=== PATIENT | female | born 1960 | race African-American/Black ===

== ENCOUNTER 2018-06-28 13:30 | Inpatient (IN) | payer MEDICAID, OTHER ==
[~2018-06-28] VITALS: Ht 167.6 cm; Wt 49.5 kg
[2018-06-28] MEDS ORDERED: SODIUM CHLORIDE 0.9% 1,000 ML IV ONE (14:14)
[2018-06-28] MEDS ORDERED: FOLIC ACID 1 MG, THIAMINE HCL 100 MG, MVI, ADULT NO.1 10 ML in DEXTROSE 5% WATER 1,000 ML IV ONE ×4 (15:00)
[2018-06-28 15:47] LABS: BASOPHILS % 1.6 % (0.0-2.0); EOSINOPHILS % 0.2 % (0.0-5.0); HEMATOCRIT. 29.1 % (36.0-48.0); HEMOGLOBIN. 9.8 g/dL (12.0-16.0); LYMPHOCYTES % 30.7 % (20.0-50.0); MEAN CORPUSCULAR HEMOGLOBIN 29.3 pg (28.0-32.0); MEAN CORPUSCULAR VOLUME 87.3 fL (81.0-99.0); MEAN PLATELET VOLUME 9.4 fl (7.4-10.4); MONOCYTES % 14.3 % (2.0-8.0); NEUTROPHILS % 53.2 % (40.0-76.0); PLATELET 323 x1000/uL (130-400); RED BLOOD CELL COUNT 3.34 mill/uL (4.2-5.4); RED CELL DISTRIBUTION WIDTH 18.3 % (11.6-14.6)
[2018-06-28] MEDS ORDERED: LORAZEPAM 2MG/ML CPJ ONE (16:03)
[2018-06-28] MEDS: LORAZEPAM 2MG/ML CPJ IV ONE ×2 (16:06→17:03)
[2018-06-28 16:08] LABS: ETHANOL BLOOD < 10 mg/dL
[2018-06-28 16:12] LABS: CREATINE KINASE 52 IU/L (26-192)
[2018-06-28 16:15] LABS: CHLORIDE 88 mEq/L (98-107)
[2018-06-28] MEDS ORDERED: POTASSIUM CHLORIDE 20MEQ TABLET SR PO ONE (16:30)
[2018-06-28] MEDS ORDERED: MAGNESIUM 1 G PREMIX 100 ML IV ONE (16:30)
[2018-06-28] MEDS ORDERED: KCL 20MEQ/100ML PREMIX 100 ML IV ONE (17:00)
[2018-06-28] MEDS ORDERED: DOCUSATE SODIUM 100MG CAPSULE PO PRN (17:45)
[2018-06-28] MEDS ORDERED: POTASSIUM CHLORIDE 20MEQ TABLET SR PO SCH (17:45)
[2018-06-28] MEDS ORDERED: GUAIFENESIN 200MG/10ML SUGAR FREE UDC PO PRN (17:45)
[2018-06-28] MEDS ORDERED: IPRATROPIUM/ALBUTEROL 0.5-3(2.5)MG/3ML NEB INH PRN (17:45)
[2018-06-28] MEDS ORDERED: NA PHOS,M-B/NA PHOS,DI-BA ENEMA 118ML PR PRN (17:45)
[2018-06-28] MEDS ORDERED: LORAZEPAM 2MG/ML CPJ IV PRN (17:45)
[2018-06-28] MEDS ORDERED: CLONIDINE 0.1MG TABLET PO PRN (17:45)
[2018-06-28] MEDS ORDERED: ONDANSETRON HCL 4MG/2ML INJ IV PRN (17:45)
[2018-06-28] MEDS ORDERED: MAGNESIUM/ALUMINUM HYDROXIDE/SIMETHICONE 30ML UDC PO PRN (17:45)
[2018-06-28] MEDS ORDERED: NITROGLYCERIN 0.4MG TABLET SL SL PRN (17:45)
[2018-06-28] MEDS ORDERED: ZOLPIDEM TARTRATE 5MG TABLET PO PRN (17:45)
[2018-06-28] MEDS ORDERED: MVI, ADULT NO.1 10 ML, FOLIC ACID 1 MG, THIAMINE HCL 100 MG in SODIUM CHLORIDE 0.9% 1,0... IV SCH ×4 (17:45)
[2018-06-28] MEDS ORDERED: ACETAMINOPHEN 325MG TABLET PO PRN (17:45)
[2018-06-28] MEDS ORDERED: KETOROLAC 15MG/ML VIAL IV PRN (17:45)
[2018-06-28 18:08] LABS: BG BASE EXCESS 10.5 mmol/L (-2.0-2.0); BG CARBOXYHEMOGLOBIN 0.3 % (0.5-1.5); BG DEOXYHEMOGLOBIN 2.8 % (0.0-5.0); BG HCO3 ACT 34.8 mmol/L (22.0-26.0); BG METHEMOGLOBIN 0.6 % (0.0-1.5); BG OXYGEN SATURATION 97.2 % (92.0-98.5); BG OXYHEMOGLOBIN 96.3 % (94.0-97.0); BG PCO2 45.4 mmHg (35.0-45.0); BG PH 7.502 (7.350-7.450); BG PO2 97.1 mmHg (75.0-100.0); BG SAMPLE SITE RIGHT BRACHIAL; BG TOTAL HEMOGLOBIN 10.2 g/dL (12.0-18.0); BG VENT MODE ROOM AIR
[2018-06-28 18:29] LABS: TOTAL IRON BINDING CAPACITY 119 ug/dL (250-450)
[2018-06-28 18:53] LABS: FOLIC ACID (FOLATE) SERUM 3.4 ng/mL (>5.38)
[2018-06-28 21:00] VITALS: BP 132/92
[2018-06-28] MEDS: FAMOTIDINE 20MG TABLET PO SCH (21:00)
[2018-06-28] MEDS: ENOXAPARIN 40MG/0.4ML SYR SUBCUT SCH (21:30)
[2018-06-28] MEDS ORDERED: CEFTRIAXONE 1 G PREMIX 50 ML IV SCH (22:00)
[2018-06-28] MEDS ORDERED: KCL 20MEQ/100ML PREMIX 100 ML IV NR (22:00)
[2018-06-28] MEDS ORDERED: LEVOFLOXACIN 500MG PREMIX 100 ML IV SCH (23:00)
[2018-06-29] VITALS: BP 113/80
[2018-06-29 04:00] VITALS: BP 103/75
[2018-06-29 08:00] VITALS: BP 91/69
[2018-06-29] MEDS ORDERED: MVI, ADULT NO.1 10 ML, FOLIC ACID 1 MG, THIAMINE HCL 100 MG in SODIUM CHLORIDE 0.9% 1,0... IV SCH ×4 (09:00)
[2018-06-29] MEDS: FAMOTIDINE 20MG TABLET PO SCH ×2 (09:27→20:44)
[2018-06-29 12:00] VITALS: BP 120/68
[2018-06-29 12:50] LABS: CHLORIDE 91 mEq/L (98-107)
[2018-06-29] MEDS ORDERED: POTASSIUM CHLORIDE 20MEQ TABLET SR PO NR ×2 (13:18→17:30)
[2018-06-29] MEDS ORDERED: POTASSIUM CHLORIDE INJ 40 MEQ in DEXT 5% WATER 250 ML IV NR (15:00)
[2018-06-29 16:00] VITALS: BP 97/58
[2018-06-29 20:00] VITALS: BP 98/66
[2018-06-29] MEDS: ENOXAPARIN 40MG/0.4ML SYR SUBCUT SCH (20:45)
[2018-06-29] MEDS: ALBUMIN HUMAN 25GM/100ML (25%) IV SCH (20:49)
[2018-06-29] MEDS: CEFTRIAXONE 1 G PREMIX 50 ML IV SCH (20:50)
[2018-06-29] MEDS: LEVOFLOXACIN 500MG PREMIX 100 ML IV SCH (20:51)
[2018-06-30] VITALS (7 sets, daily range): BP systolic 96–100; BP diastolic 54–73
[2018-06-30] MEDS: ALBUMIN HUMAN 25GM/100ML (25%) IV SCH ×2 (05:05→13:28)
[2018-06-30] MEDS: FAMOTIDINE 20MG TABLET PO SCH ×2 (08:59→21:31)
[2018-06-30 14:07] LABS: CHLORIDE 97 mEq/L (98-107)
[2018-06-30] MEDS: CEFTRIAXONE 1 G PREMIX 50 ML IV SCH (21:29)
[2018-06-30] MEDS: ENOXAPARIN 40MG/0.4ML SYR SUBCUT SCH (21:31)
[2018-06-30] MEDS: LEVOFLOXACIN 500MG PREMIX 100 ML IV SCH (22:30)
[2018-07-01] VITALS (8 sets, daily range): BP systolic 99–121; BP diastolic 57–88
[2018-07-01] MEDS: FAMOTIDINE 20MG TABLET PO SCH ×2 (08:16→21:01)
[2018-07-01 16:46] LABS: CHLORIDE 95 mEq/L (98-107)
[2018-07-01] MEDS: ENOXAPARIN 40MG/0.4ML SYR SUBCUT SCH (21:02)
[2018-07-01] MEDS: CEFTRIAXONE 1 G PREMIX 50 ML IV SCH (21:03)
[2018-07-01] MEDS: LEVOFLOXACIN 500MG PREMIX 100 ML IV SCH (21:25)
[2018-07-02 04:00] VITALS: BP 106/73
[2018-07-02] MEDS: FAMOTIDINE 20MG TABLET PO SCH ×2 (10:15→21:09)
[2018-07-02 12:00] VITALS: BP 109/74
[2018-07-02 16:00] VITALS: BP 112/82
[2018-07-02 20:00] VITALS: BP 103/76
[2018-07-02] MEDS: CEFTRIAXONE 1 G PREMIX 50 ML IV SCH (20:00)
[2018-07-02] MEDS ORDERED: LEVOFLOXACIN 500MG TABLET PO SCH (21:00)
[2018-07-02] MEDS: ENOXAPARIN 40MG/0.4ML SYR SUBCUT SCH (21:09)
[2018-07-03] VITALS: BP 110/75
[2018-07-03 04:00] VITALS: BP 102/68
[2018-07-03 08:00] VITALS: BP 124/66
[2018-07-03] MEDS: FAMOTIDINE 20MG TABLET PO SCH (10:11)
[2018-07-03 10:43] VITALS: BP 119/84
[2018-07-03 11:30] VITALS: BP 112/77
== END 2018-07-03 11:40 | disposition home or self-care (01) | DRG 720 ==
LOC: ER 13:53 → 7WST 16:37 → EDBEDREQ 16:41 → ENRESERV 17:40
PROVIDERS: ADMIT Internal Medicine; ATTEND Internal Medicine
DX: A41.9 Sepsis, unspecified organism (principal); E44.0 Moderate protein-calorie malnutrition; R56.9 Unspecified convulsions; E87.6 Hypokalemia; R74.0 Nonspecific elevation of levels of transaminase and lactic acid dehydrogenase [LDH]; F10.10 Alcohol abuse, uncomplicated; Z88.0 Allergy status to penicillin; Z68.1 Body mass index [BMI] 19.9 or less, adult
CPT/HCPCS: 36415; 36600; 71045; 80048; 82375; 82550; 82607; 82746; 82805; 83540; 83550; 83605; 83735; 83880; 84484; 85379; 93005; 93970; 96361; 96365; 96366; 96368; 96375; 97116; 97162; 97165; 99285; C1893; G0482; J0696; J1650; J1956; J2060; J3411; J3475; J3480; J3490; J7030; J7050; J7060; J7070; P9047